=== PATIENT | female | born 1965 ===

== ENCOUNTER 2025-04-06 08:00 | Day surgery (SDC) | payer OTHER ==
[2025-03-29 08:11] VITALS: BP 131/69
[~2025-04-06] VITALS: Ht 162.6 cm; Wt 65.3 kg
[~2025-04-06 08:00] MED LIST: ROSUVASTATIN CAL5 MG PO; VALSARTAN-HCTZ1 EAC4 PO; VOLTAREN ARTHRI20 GM
[2025-04-06] MEDS ORDERED: DEXAMETHASONE SODIUM PHOSP/PF 10 MG/ML VIAL ONE (09:10)
== END 2025-04-06 14:25 | disposition home or self-care (01) ==
LOC: EDSTATUS 08:00 → O/R 08:00 → CIR.AMB 08:00 → SURH 08:00 → O/R 14:25 → CIR.AMB 14:25
PROVIDERS: ATTEND Surgery
DX: D35.1 Benign neoplasm of parathyroid gland (principal); E21.0 Primary hyperparathyroidism